=== PATIENT | female | born 1975 | race Two or more races ===

== ENCOUNTER 2017-10-12 16:47 | Outpatient (CLI) | payer OTHER ==
[~2017-10-12 16:47] MED LIST: AMOX1TAB12 PO; CORTISPORIN EAR10 M1 OT; DEMEBORO OTIC DROPS OTIC; FLONASE16 GM NS; GILTUSS TR TAB1 EACH PO; SYNTHROID75 MCG; ZITHROMAX500 MG PO; ZYRTEC10 MG PO
== END 2017-10-12 16:50 | disposition home or self-care (01) ==
LOC: RAD 16:47
DX: Z00.01 Encounter for general adult medical examination with abnormal findings (principal); M79.671 Pain in right foot; R22.9 Localized swelling, mass and lump, unspecified

== ENCOUNTER 2017-10-13 07:43 | Outpatient (CLI) | payer OTHER | END 2017-10-13 07:45 | disposition home or self-care (01) | LOC: LAB 07:43 | DX: E78.2 Mixed hyperlipidemia (principal); E55.9 Vitamin D deficiency, unspecified; E03.8 Other specified hypothyroidism; Z00.01 Encounter for general adult medical examination with abnormal findings ==

== ENCOUNTER 2018-09-10 09:24 | Emergency (ER) | payer OTHER ==
[~2018-09-10] VITALS: Ht 162.6 cm; Wt 86.2 kg
== END 2018-09-10 12:06 | disposition home or self-care (01) ==
LOC: ER 09:24
DX: B34.9 Viral infection, unspecified (principal)

== ENCOUNTER 2020-01-10 10:00 | Outpatient (CLI) | payer OTHER | END 2020-01-10 15:48 | disposition home or self-care (01) | LOC: PPH VACUNA 10:00 | DX: Z23 Encounter for immunization (principal) ==

== ENCOUNTER 2021-01-12 08:00 | Outpatient (CLI) | payer OTHER | END 2021-01-12 08:30 | disposition home or self-care (01) | LOC: PPH VACUNA 08:00 | PROVIDERS: ATTEND Emergency Medicine Pediatric Emergency Medicine | DX: Z23 Encounter for immunization (principal) ==

== ENCOUNTER → 2021-10-16 07:50 | Outpatient (CLI) | payer OTHER | END | disposition home or self-care (01) | LOC: LAB 07:50 | PROVIDERS: ATTEND Obstetrics & Gynecology | DX: B00.9 Herpesviral infection, unspecified (principal); E78.00 Pure hypercholesterolemia, unspecified; N39.0 Urinary tract infection, site not specified; R22.1 Localized swelling, mass and lump, neck; D50.9 Iron deficiency anemia, unspecified; E03.9 Hypothyroidism, unspecified ==

== ENCOUNTER 2021-10-20 13:31 | Outpatient (CLI) | payer OTHER | END 2021-10-20 13:44 | disposition home or self-care (01) | LOC: MAMO-SONO 13:31 | PROVIDERS: ATTEND Obstetrics & Gynecology | DX: N63.12 Unspecified lump in the right breast, upper inner quadrant (principal); N63.21 Unspecified lump in the left breast, upper outer quadrant ==

== ENCOUNTER 2022-11-03 14:20 | Outpatient (CLI) | payer OTHER | END 2022-11-03 14:29 | disposition home or self-care (01) | LOC: SONOGRAMA 14:20 | PROVIDERS: ATTEND Internal Medicine Endocrinology, Diabetes & Metabolism | DX: E04.8 Other specified nontoxic goiter (principal) ==

== ENCOUNTER 2022-11-05 07:48 | Outpatient (CLI) | payer OTHER | END 2022-11-05 07:50 | disposition home or self-care (01) | LOC: LAB 07:48 | PROVIDERS: ATTEND Internal Medicine Endocrinology, Diabetes & Metabolism | DX: E78.00 Pure hypercholesterolemia, unspecified (principal) ==

== ENCOUNTER 2023-01-21 09:30 | Outpatient (CLI) | payer OTHER | END 2023-01-21 09:40 | disposition home or self-care (01) | LOC: PPH VACUNA 09:30 | PROVIDERS: ATTEND Emergency Medicine Pediatric Emergency Medicine | DX: Z23 Encounter for immunization (principal) ==

== ENCOUNTER 2023-01-29 10:07 | Outpatient (CLI) | payer OTHER ==
[2023-01-29 11:50] LABS: ALBUMIN 3.4 gm/dL (3.4-5.0); BILIRUBIN TOTAL 0.56 mg/dL (0.3-1.2); CALCIUM 8.4 mg/dL (8.5-10.1); CHOL HDL RATIO 2.4 (0-5.0); CREATININE SERUM 0.53 mg/dL (0.55-1.02); GFR 123.65; T4 FREE 1.14 NG/ML (0.76-1.46); TOTAL PROTEIN 6.4 gm/dL (6.4-8.2); TSH 2.07 uIU/mL (0.358-3.74)
== END 2023-01-29 10:08 | disposition home or self-care (01) ==
LOC: LAB 10:07
PROVIDERS: ATTEND Internal Medicine Endocrinology, Diabetes & Metabolism
DX: E03.8 Other specified hypothyroidism (principal); E11.65 Type 2 diabetes mellitus with hyperglycemia; E78.00 Pure hypercholesterolemia, unspecified

== ENCOUNTER 2023-06-11 11:39 | Outpatient (CLI) | payer OTHER ==
[2023-06-11 13:51] LABS: ALBUMIN 3.5 gm/dL (3.4-5.0); BILIRUBIN TOTAL 0.41 mg/dL (0.3-1.2); CALCIUM 9.1 mg/dL (8.5-10.1); CHOL HDL RATIO 2.7 (0-5.0); CREATININE SERUM 0.45 mg/dL (0.55-1.02); GFR 148.71; GLOBULINA 2.6 G/DL (2.4-3.5); POTASSIUM 3.96 mEq/L (3.5-5.1); T4 FREE 1.07 NG/ML (0.76-1.46); TOTAL PROTEIN 6.1 gm/dL (6.4-8.2); TSH 1.76 uIU/mL (0.358-3.74)
== END 2023-06-11 11:43 | disposition home or self-care (01) ==
LOC: LAB 11:39
PROVIDERS: ATTEND Internal Medicine Endocrinology, Diabetes & Metabolism
DX: E03.8 Other specified hypothyroidism (principal); E11.65 Type 2 diabetes mellitus with hyperglycemia; E78.00 Pure hypercholesterolemia, unspecified

== ENCOUNTER 2023-11-29 11:49 | Outpatient (CLI) | payer OTHER | END 2023-11-29 11:58 | disposition home or self-care (01) | LOC: LAB 11:49 | PROVIDERS: ATTEND Specialist | DX: Z20.820 Contact with and (suspected) exposure to varicella (principal) ==

== ENCOUNTER 2024-02-13 03:15 | Outpatient (CLI) | payer OTHER | END 2024-02-13 04:00 | disposition home or self-care (01) | LOC: PPH VACUNA 03:15 | PROVIDERS: ATTEND Emergency Medicine Pediatric Emergency Medicine | DX: Z23 Encounter for immunization (principal) ==

== ENCOUNTER → 2024-02-27 09:17 | Outpatient (CLI) | payer OTHER ==
[2024-02-27 11:08] LABS: ALBUMIN 3.6 gm/dL (3.4-5.0); BILIRUBIN TOTAL 0.4 mg/dL (0.3-1.2); CALCIUM 8.6 mg/dL (8.5-10.1); CHOL HDL RATIO 3.1 (0-5.0); CREATININE SERUM 0.52 mg/dL (0.55-1.02); GFR 125.33; POTASSIUM 4.18 mEq/L (3.5-5.1); T4 FREE 1.11 NG/ML (0.76-1.46); TOTAL PROTEIN 6.6 gm/dL (6.4-8.2); TSH 2.7 uIU/mL (0.358-3.74)
== END | disposition home or self-care (01) ==
LOC: LAB 09:17
PROVIDERS: ATTEND Internal Medicine Endocrinology, Diabetes & Metabolism
DX: E03.8 Other specified hypothyroidism (principal); E11.65 Type 2 diabetes mellitus with hyperglycemia; E78.00 Pure hypercholesterolemia, unspecified

== ENCOUNTER → 2024-06-19 10:56 | Outpatient (CLI) | payer OTHER ==
[2024-06-21 10:08] LABS: HEPATITIS A ANTIBODY IGG Negative (Negative); HEPATITIS B SURFACE ANTIBODY Reactive (.); HEPATITIS C VIRUS ANTIBODY Non Reactive (Non Reactive)
== END | disposition home or self-care (01) ==
LOC: LAB 10:56
DX: A64 Unspecified sexually transmitted disease (principal); B19.9 Unspecified viral hepatitis without hepatic coma

== ENCOUNTER 2024-07-31 07:33 | Outpatient (CLI) | payer OTHER ==
[2024-07-31 09:07] LABS: ALBUMIN 3.4 gm/dL (3.4-5.0); BILIRUBIN TOTAL 0.31 mg/dL (0.3-1.2); CALCIUM 8.4 mg/dL (8.5-10.1); CREATININE SERUM 0.47 mg/dL (0.55-1.02); GFR 140.84; POTASSIUM 4.33 mEq/L (3.5-5.1); TOTAL PROTEIN 6.4 gm/dL (6.4-8.2); TSH 1.78 uIU/mL (0.358-3.74)
== END 2024-07-31 07:44 | disposition home or self-care (01) ==
LOC: LAB 07:33
PROVIDERS: ATTEND Internal Medicine Endocrinology, Diabetes & Metabolism
DX: R73.02 Impaired glucose tolerance (oral) (principal)